=== PATIENT | male | born 1975 | race Caucasian/White ===

== ENCOUNTER 2017-12-11 13:58 | Day surgery (SDC) | payer OTHER ==
[2017-12-11] MEDS ORDERED: PROPOFOL 10 MG/ML VIAL IV ONE (13:59)
[2017-12-11] MEDS ORDERED: LIDOCAINE 2% MDV (20MG/ML) 20ML VIAL IV ONE (13:59)
--- NOTE | 2017-12-12 08:40 | Operative Note ---
DATE OF SURGERY: OPERATION: ESOPHAGOGASTRODUODENOSCOPY with biopsy. PREOPERATIVE DIAGNOSIS: Episodic dysphagia. Rule out EOE. 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 PROCEDURE: After informed consent was obtained from the patient, he was placed in the left lateral decubitus position in the endoscopy suite, sedated and monitored by the department of anesthesia. Once sedated, a well-lubricated [id number] gastroscope was placed in the posterior oropharynx and under direct visualization passed to the proximal esophagus. The endoscope was advanced through the proximal, mid, and distal esophagus. There were esophageal rings that were of moderate tightness throughout the length of the mid esophagus. There were also longitudinal furrows. I was able to traverse the endoscope without resistance, which was subsequently advanced into the GE junction and gastric body which were unremarkable. There was normal distensibility. The pylorus and the antrum, duodenum bulb and sweep were unremarkable. J-turn views of the proximal stomach were unremarkable. The endoscope was straightened. Random esophageal biopsies were obtained. The endoscope was removed from the patient with no new findings noted. RECOMMENDATIONS: We will await the results of tissue histology but suspect the patient will require [id number] proton pump inhibitor therapy and followup endoscopy in 8 weeks shoulder EOE be confirmed. As always, thank you for allowing me to participate in the healthcare of your patients. CC: DO FERDINAND Olivo
== END 2017-12-11 15:32 | disposition home or self-care (01) ==
LOC: HOP 13:58
PROVIDERS: ATTEND Internal Medicine Gastroenterology
DX: R13.10 Dysphagia, unspecified (principal); K20.0 Eosinophilic esophagitis